=== PATIENT | female | born 1985 | race Two or more races ===

== ENCOUNTER 2021-03-23 14:13 | Outpatient (REF) | payer OTHER, SELFPAY ==
--- NOTE | ~2021-03-23 | XR_ITS ---
EXAMINATION: XR ANKLE, RIGHT CLINICAL INFORMATION: Injury COMPARISON: None TECHNIQUE: AP, lateral, and mortise views of the right ankle. FINDINGS: Bone alignment is normal. No acute fracture or dislocation is seen. There is a well-corticated soft tissue ossification inferior to the lateral malleolus suggestive of changes related to old trauma or accessory ossicle. The ankle mortise is normal. Soft tissues are normal. XR/XR ankle RT min 3V IMPRESSION: No acute fracture or dislocation seen.
== END 2021-03-23 14:14 | disposition home or self-care (01) ==
LOC: HO.HMGCX 14:13
PROVIDERS: PCP Internal Medicine; Visit Provider Nurse Practitioner Family
DX: S99.911A Unspecified injury of right ankle, initial encounter (principal)
CPT/HCPCS: 73610

== ENCOUNTER 2023-12-26 22:54 | Emergency (ER) | payer OTHER, SELFPAY ==
--- NOTE | ~2023-12-26 | CT_ITS ---
EXAMINATION: CT HEAD WITHOUT CONTRAST CLINICAL INFORMATION: Repeat scan to evaluate hyperdense lesion/bleed COMPARISON: 12/26/2023 TECHNIQUE: Contiguous axial imaging was performed from the skull base to vertex without intravenous administration of contrast. This CT examination was performed using dose optimization techniques as appropriate, variously including the following: *Automated exposure control *Adjustment of mA and/or kV according to patient size (this includes techniques or standardized protocols for targeted exams where dose is matched to indication/reason for exam; i.e. extremities or head) *Use of iterative reconstruction technique DLP: 568 mGy-cm FINDINGS: There is a redemonstrated tiny hyperattenuating focus along the left aspect of the anterior falx on image 29/49 which is unchanged from prior and may reflect calcification versus trace hemorrhage. Small region of cortical calcification again noted in the inferior left frontal lobe which may reflect sequelae of old infection or prior infarction. There is no evidence of acute territorial infarction. No abnormal mass-effect or midline shift is seen. Zavala to white matter differentiation is well preserved. The ventricles are normal in size. No acute fracture is seen. Redemonstrated small subgaleal hematoma anteriorly towards the vertex. The mastoid air cells are well-aerated. Slight opacification of the visualized maxillary sinuses. Partial opacification of the bilateral ethmoid air cells. CT/CT head/brain wo IV con IMPRESSION: Tiny hyperattenuating focus along the left aspect of the anterior falx is unchanged from prior and may reflect calcification versus trace hemorrhage. No new acute findings identified.
--- NOTE | ~2023-12-26 | CT_ITS ---
EXAMINATION: NONCONTRAST HEAD CT NONCONTRAST CERVICAL SPINE CT INDICATION INFORMATION: Fall, head strike COMPARISON: None TECHNIQUE: Separate noncontrast CT examinations of the head and cervical spine were performed. Coronal head CT images and coronal and sagittal cervical spine images were created at the technologist workstation. DLP: 806 mGy-cm DOSE LOWERING TECHNIQUES: This CT examination was performed using dose optimization techniques as appropriate, variously including the following: - Automated exposure control - Adjustment of mA and/or kV according to patient size (this includes techniques or standardized protocols for targeted exams were dose is matched to indication/reason for exam; i.e. extremities or head) - Use of iterative reconstruction technique FINDINGS: Head: There is a 3 mm hyperdensity adjacent to the left aspect of the anterior falx on image 44/72 which could reflect a tiny focus of calcification, though trace hemorrhage could also have a similar appearance. Small amount of cortical calcification is present in the inferior left lower lobe. There is no evidence of acute territorial infarction. No abnormal mass-effect or midline shift is seen. Zavala to white matter differentiation is well preserved. The ventricles are normal in size. There is no abnormal attenuation within the brain parenchyma. No acute fracture is seen. Small subgaleal hematoma is suspected anteriorly towards the vertex. Left maxillary sinus because retention cyst. Trace fluid in the right maxillary sinus. Partially opacified bilateral ethmoid air cells. The mastoid air cells are well-aerated. Cervical spine: There is degenerative change at the atlantodens articulation. There is reversal of the normal cervical lordosis which could be due to positioning or muscle spasm. There is minimal grade 1 anterolisthesis of C3 on C4 and C4 on C5, age-indeterminate. Vertebral body heights are maintained. Intervertebral disc spaces are preserved. No evidence of acute fracture. No prevertebral soft tissue swelling. Visualized portions of the lung apices demonstrate scarring. The thyroid gland is unremarkable. CT/CT cervical spine wo IV con IMPRESSION: HEAD: 1. Tiny hyperdensity adjacent to the left aspect of the anterior falx could reflect a tiny focus of calcification, though trace acute hemorrhage could also have this appearance. This could be reassessed with short-term follow-up CT. 2. Small subgaleal hematoma anteriorly towards the vertex. CERVICAL SPINE: 1. No acute fracture identified. 2. Minimal grade 1 anterolisthesis of C3 on C4 and C4 on C5, age-indeterminate. If there is concern for ligamentous injury, this may be further assessed with MRI. This critical result was discussed with Vignesh Svaage MD on 12/27/2023 1:14 AM, and it was ascertained that the content and urgency of the report was understood at the time of direct communication.
[2023-12-26 23:19] VITALS: BP 119/80; PULSE 93; RESP 16; TEMP 36.7; O2SAT 98; BMI 23.2
--- NOTE | 2023-12-27 01:22 | ED_ITS ---
HPI - Fall General Chief Complaint: Fall Stated Complaint: fell down stairs hit her head Time Seen by Provider: 12/27/23 01:22 Source: patient and family (, Teddy) Mode of arrival: ambulatory Limitations: no limitations History of Present Illness HPI Narrative: 38-year-old female with no significant past medical history, not on blood thinners who presents emergency department for evaluation of head pain and neck pain after falling down approximately 10-12 stairs. The patient states that she was at home and at the top of the steps when she lost her balance and fell. She states she landed on her right shoulder and struck the top of her head on the stairs. She denied loss of consciousness. She states that at the bottom of the stairs she was able to sit up and eventually stand. She is complaining of pain at the top of her head she is 5/10. She denied numbness, weakness, nausea, vomiting. The injury occurred at around 22:30 hours. 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 She denies tobacco use. She occasionally drinks alcohol. She denies drug use. Medical History (Updated 12/27/23 @ 02:58 by Car Ribeiro MD) Physical exam Surgical History (Updated 07/21/20 @ 06:21 by Clara Alvarado) History of appendectomy Family History Family History (Updated 07/21/20 @ 06:22 by Clara Alvarado) Father No problems noted. Mother Hypertension Paternal Grandmother Diabetes Maternal Uncle CVD (cardiovascular disease) Social History Social History Advance Directives: No Advance Directives Information Provided: No Physical Exam Vital Signs: Vital Signs: Last Vital Signs Temp 98.0 F 12/27/23 01:47 Pulse 103 H 12/27/23 01:47 Resp 18 12/27/23 02:23 BP 123/77 12/27/23 01:47 Pulse Ox 98 12/27/23 01:47 O2 Del Method Room Air 12/27/23 01:47 BMI result Body Mass Index 23.2 Vital signs were normal Exam: General: Awake, alert in no distress Head: Has a hematoma over the anterior parietal midline area, this area is tender to palpation, there is a slight abrasion noted in this area with no laceration. EENT: PERRL, Lids normal, sclera normal, conjunctiva normal, nose normal , ears normal, throat without erythema or exudates Neck: Patient has no C-spine tenderness but does have tenderness with palpation of her paraspinal muscles left greater than right with no spasm Lung: breath sounds symmetric, no wheezing, rales or rhonchi Chest: symmetric movement, nontender Heart: regular rate and rhythm, normal S1, S2 no murmurs or rubs Abdomen: soft, non-tender, nondistended, normal bowel sounds Back: no vertebral tenderness, no CVAT Extremities: Patient has mild tenderness palpation of her right deltoid area but has full range of motion of both shoulders, no clavicle tenderness Neuro: Awake, alert, oriented, normal speech, cranial nerves intact, moves all extremities symmetrically Psych: Pleasant, cooperative Medications Administered Discontinued Medications Generic Name Dose Route Start Last Admin Trade Name Freq PRN Reason Stop Dose Admin Morphine Sulfate 4 mg 12/27/23 02:16 12/27/23 02:23 Morphine Sulfate 4 Mg/Ml Cartridge IVPUSH 12/27/23 02:17 4 mg ONCE STA Administration Protocol Ondansetron HCl 4 mg 12/27/23 02:16 12/27/23 02:23 Ondansetron Hcl 4 Mg/2 Ml Vial IVPUSH 12/27/23 02:17 4 mg ONCE ONE Administration Medical Decision Making Medical Decision Making MDM Narrative: 38-year-old female with no significant past medical history who lost her balance at the top of her stairs at home. The fall occurred around 22:30 hours. The patient states that she fell down approximately 10-12 steps. She believes that she initially landed on her right shoulder and then struck the top of her head. Patient had no loss of consciousness. She is currently complaining of top of her head which is 5/10. She has had no nausea, vomiting, numbness or weakness since her fall. Patient's vital signs were normal. Patient does have a hematoma on the anterior parietal in the midline region with a small abrasion o elia the hematoma. This area is tender to palpation. Her neurologic exam was nonfocal. Patient had no significant. Differential diagnosis: ?Includes but is not limited to skull fracture, cerebral bleed, scalp contusion, musculoskeletal contusions Following evaluation was ordered: CT scan of the head and cervical spine without IV contrast Patient was initially treated with the following: Morphine 4 mg IV, Zofran [address] scan of the cervical spine was unremarkable. CT of the brain without IV contrast revealed a tiny hyperdensity adjacent to the left aspect of the anterior falx which could represent a trace acute hemorrhage verses calcified foci. I did discuss the CT head finding with the trauma surgeon at [facility], Dr. Avila. She stated that this was a Brain Injury Guideline 1 injury(BIG 1). She states that the guideline recommends 6 hours of observation in the emergency depart with or without repeat CT scan of the brain at the end of the observation. If the patient's condition does not change and/or if there has no change in the CT scan findings then the patient can be safely discharged home. 02:09 Start physician observation The patient was placed in physician observation and will be closely monitored for change in neurologic status. The patient will have a repeat CT scan 6 hours after the 1st CT scan at 05:30 hours. If there has no change in her CT brain and her neurologic status remains nonfocal, she will be discharged home. At the end of my shift, the patient's care was turned over to my colleague, Dr. Tj Quintanilla. Admission/Observation Consideration of admission/observation: Escalation of care including admission/observation considered Consult Healthcare Provider Management of the patient was discussed with: Animal Physiologist ([facility] trauma surgeon, Dr. Avila) Prescription Management I considered prescription management with: Pain Medication Discharge Plan Discharge Clinical Impression: Fall down stairs, Acute cerebral hemorrhage, Closed head injury, Acute neck sprain, Multiple contusions Patient Disposition: Still a Patient Instructions: Head Injury (ED) Additional Instructions: You may have had a very small bleed in your brain from striking your head when you fell down the stairs. Repeat CT scan did not reveal any significant change which is very reassuring. Do not take any medications that can increased bleeding over the next 48 hours. This includes aspirin, Motrin, Advil, Aleve, naproxen, ibuprofen or other nonsteroidal anti-inflammatory medications. Take Tylenol (acetaminophen) 2 pills every 6 hours as needed for pain. For pain not relieved by Tylenol take morphine 15 mg pills, 1 pill every 4 hours as needed for pain. This medication will make you sleepy, do not drive or work while taking this medication. Morphine is a narcotic medication and can be addicting. If you are concerned about addiction you can ask the pharmacist for less pills or do not get this prescription filled. Apply ice to your head for 15 minutes 4 to 6 times a day to help reduce the hematoma/swelling on the top of your head. You can also apply ice to other areas that hurt from the fall. Follow-up with your doctor in 2 days. Please return to the emergency department if your symptoms get worse or if you develop any symptoms that are concerning to you. Prescriptions: New morphine 15 mg tablet 15 mg PO Q6H PRN (Reason: pain) Qty: 14 0RF Rx Instructions: Patient may request partial fill; Partial Fill upon patient request. Print Language: Japanese
[2023-12-27 01:47] VITALS: BP 123/77; PULSE 103; RESP 17; TEMP 36.7; O2SAT 98
--- NOTE | 2023-12-27 01:53 | PC.NURSE ---
Patient is alert and oriented x5, VSS, no focal deficits. Patient c/o headache and pain in right shoulder s/p fall from top of the stairs (10 stairs down) with + head strike, no LOC, does not take blood thinners. Patient changed into a hospital attire, 20 G IV line placed in L AC, patient medicated per NOV. Patient's spouse at bedside, call rivas in patient's reach.
[2023-12-27 02:23] VITALS: RESP 18
[2023-12-27] MEDS: ondansetron HCL 4 MG/2 ML VIAL IVPUSH (02:23)
[2023-12-27] MEDS: Morphine Sulfate 4 MG/ML CARTRIDGE IVPUSH (02:23)
[2023-12-27 04:00] VITALS: BP 105/58; PULSE 69; RESP 10; TEMP 36.8; O2SAT 99
--- NOTE | 2023-12-27 05:44 | PC.NURSE ---
Patient taken to CT scan.
[2023-12-27 06:11] VITALS: BP 118/63; PULSE 75; RESP 17; TEMP 36.9; O2SAT 100
[2023-12-27] MEDS: Acetaminophen 325 MG TABLET 650 MG PO (06:32)
[2023-12-27 07:20] VITALS: BP 116/65; PULSE 79; RESP 16; TEMP 36.7; O2SAT 99
[2023-12-27 07:21] VITALS: BP 116/65; PULSE 79; RESP 16; TEMP 36.7; O2SAT 99
== END 2023-12-27 07:22 | disposition home or self-care (01) ==
PROVIDERS: Emergency Provider Internal Medicine; PCP Internal Medicine
DX: S06.2XAA Diffuse traumatic brain injury with loss of consciousness status unknown, initial encounter (principal); S13.9XXA Sprain of joints and ligaments of unspecified parts of neck, initial encounter; S20.20XA Contusion of thorax, unspecified, initial encounter; M54.2 Cervicalgia; R51.9 Headache, unspecified; W10.9XXA Fall (on) (from) unspecified stairs and steps, initial encounter; Y93.9 Activity, unspecified; Y92.9 Unspecified place or not applicable; Y99.8 Other external cause status
CPT/HCPCS: 70450; 72125; 96374; 96375; 99284; 99285; J2270; J2405

== ENCOUNTER 2024-02-04 11:21 | Emergency (ER) | payer OTHER, SELFPAY ==
--- NOTE | ~2024-02-04 | CT_ITS ---
EXAMINATION: CT HEAD WITHOUT CONTRAST CLINICAL INFORMATION: Worsening headache COMPARISON: CT head from 12/27/2023 TECHNIQUE: Contiguous axial imaging was performed from the skull base to vertex without intravenous administration of contrast. This CT examination was performed using dose optimization techniques as appropriate, variously including the following: *Automated exposure control *Adjustment of mA and/or kV according to patient size (this includes techniques or standardized protocols for targeted exams where dose is matched to indication/reason for exam; i.e. extremities or head) *Use of iterative reconstruction technique DLP: 559 mGy-cm FINDINGS: Redemonstrated calcification along the inferior aspect of the left frontal lobe potentially representing sequela of remote infection. Previously identified hyperdensity along the anterior falx is less conspicuous on current examination. There is no evidence of acute intracranial hemorrhage or territorial infarction. No abnormal mass effect or midline shift is seen. Zavala to white matter differentiation is well preserved. No extra-axial fluid collections are identified. The ventricles are normal in size. There is no abnormal attenuation within the brain parenchyma. The osseous structures and soft tissues are normal. Mucoperiosteal thickening of the left maxillary sinus. The mastoid air cells and visualized portions of the paranasal sinuses are well aerated. CT/CT head/brain wo IV con IMPRESSION: 1. No acute intracranial pathology. 2. Redemonstrated calcification along the inferior aspect of the left frontal lobe potentially representing sequela of remote infection. 3. Previously identified hyperdensity along the anterior falx is less conspicuous on current examination suggesting resolution.
[2024-02-04 12:18] VITALS: BP 137/93; PULSE 98; RESP 18; TEMP 36.6; O2SAT 99; BMI 23.0
--- NOTE | 2024-02-04 12:23 | ED_ITS ---
HPI - General Adult General Chief complaint: Headache Stated complaint: Lightheaded, shaky, fatigue Time Seen by Provider: 02/04/24 19:22 Source: patient Mode of arrival: ambulatory Limitations: no limitations History of Present Illness ED Provider: Sabino Alvarez PA-C HPI narrative: 38 yold female healthy presents to the ED for headaches intermittently since december after falling down the stairs. Patient was informed she seems to be having concussion like symptoms. Patient also states since with headache that noise and light will make it worse. Patient denies any posterior neck stiffness, fever, chills, or rash. Patient denies any chest pain or shortness of breath. Patient states at times will have bilateral shoulder and back pain with headache. Patient denies any weakness or paralysis of extremities. Patient denies slurred speech, facial droop, loss of vision, weakness, paralysis of extremites. Patient had MRI last week Related Data Previous Rx's ?Medication ?Instructions ?Recorded morphine 15 mg immediate release 15 mg PO Q6H PRN pain #14 tabs 12/27/23 tablet [id number]-mtkmetgfmblev-[id number] 1 cap PO Q6H PRN pain 2 days #8 02/04/24 50 mg-300 mg-40 mg capsule caps (Fioricet) naproxen 500 mg tablet 500 mg PO BID PRN pain 7 days #14 02/04/24 tabs Allergies Allergy/AdvReac Type Severity Reaction Status Date / Time No Known Allergies Allergy Verified 02/04/24 12:21 [No Known Allergies*] Review of Systems 2 Review of Systems: headache for one month Yes all other systems are reviewed and are negative FOR[facility]LY [facility] Past Medical History Medical History (Updated 02/04/24 @ 23:44 by PITER Julio) Physical exam Surgical History (Updated 07/21/20 @ 06:21 by Clara Alvarado) History of appendectomy Family History Family History (Updated 07/21/20 @ 06:22 by Clara Alvarado) Father No problems noted. Mother Hypertension Paternal Grandmother Diabetes Maternal Uncle CVD (cardiovascular disease) Social History Social History Alcohol intake: current Alcohol intake frequency: holidays/special occasions only Smoked in Last 30 Days: No Use of substances other than those prescribed or required for medical reasons: No Advance Directives: No Advance Directives Information Provided: No Do you have a plan to hurt others: No Plan Patient : No Physical Exam ED Vital Signs: Vital Signs - 24 hr 02/04/24 22:09 02/05/24 00:01 02/05/24 00:17 Temperature 97.5 F 97.5 F Pulse Rate 73 85 85 Respiratory Rate 16 18 18 Blood Pressure 92/55 L 120/76 120/76 Pulse Oximetry 99 99 99 Oxygen Delivery Method Room Air Room Air Room Air BMI result Body Mass Index 23.0 Const General: cooperative, healthy appearing, comfortable, no acute distress, well developed, alert, awake and Physically active Orientation/consciousness: oriented to person, oriented to place, oriented to time and patient oriented x3 HENMT Head: Yes normal to inspection, Yes No palpable skull fracture present, Yes normocephalic, Yes atraumatic and No abrasion Ears: hearing grossly normal bilaterally, external ears normal, TM's normal bilaterally, TM normal on the right, TM normal on the left, EAC's normal, mastoids normal and no periauricular adenopathy Face and sinus: Yes normal facial exam, Yes sinuses nontender and Yes face symmetric Throat: Yes posterior oropharynx normal, Yes tonsils normal and Yes uvula midline Eyes General: appearance normal, both eyes and all related structures Visual Mckeon: normal visual mckeon by confrontation Alignment and Position: alignment normal Periorbital: periorbital findings normal Eyelids: Yes eyelids normal Conjunctivae: conjunctivae normal Sclerae: sclerae normal Corneas: corneas normal Pupils: Equal, round and reactive pupils present Neck Neck: Yes normal visual inspection, Yes full ROM, Yes no lymphadenopathy, Yes no meningeal signs, Yes trachea midline, Yes supple, No anterior neck swelling and No tender Chest Chest palpation & inspection: normal inspection of the chest and normal palpation of entire chest wall Resp Effort & Inspection: normal respiratory effort and able to speak in complete sentences Auscultation: clear to auscultation bilaterally Cardio Jugular venous distension: no JVD Heart sounds: S1 normal heart sound present and S2 normal heart sound present GI Inspection: Yes normal to inspection Palpation (GI): Soft to palpation, not firm, nontender, no guarding and not rigid General: No CVA tenderness and Yes no CVA tenderness Back/Spine/Pelvis Back: no CVA tenderness, No CVA tenderness and No back tenderness Skin General skin exam: no rashes or lesions noted, elasticity normal and turgor normal Neuro General: oriented to person, oriented to place, oriented to time, patient oriented x3, gait normal, tone normal, moves all extremities, Normal light touch and pain sensation, no meningeal signs, no focal motor deficits, CN's II-XI intact bilaterally and normal sensation to monofilament Cranial nerves: Yes Equal, round and reactive pupils present Extrem General: Yes normal to inspection, Yes full ROM and Yes capillary refill normal Psych Appearance: grossly normal, well kempt and not disheveled Course Course Course Narrative: [age] old female presents for evaluation of headache. She was seen here on 12/26/2023 after falling down 10-12 steps. At the time she had a small intracranial hemorrhage. She was kept overnight repeat CT 6 hours later showed no interval change and she was discharged home. Denies any recent trauma. She reports having an MRI last week but does not know the results. On exam she is well-appearing. Plan for repeat CT brain given the worsening headaches Medications Administered Discontinued Medications Generic Name Dose Route Start Last Admin Trade Name Freq PRN Reason Stop Dose Admin Diphenhydramine HCl 50 mg 02/04/24 19:54 02/04/24 20:16 Diphenhydramine Hcl 50 Mg/Ml Vial IVPUSH 02/04/24 19:55 50 mg ONCE ONE Administration Ketorolac Tromethamine 30 mg 02/04/24 19:54 02/04/24 20:16 Ketorolac Tromethamine 30 Mg/Ml Vial IVPUSH 02/04/24 19:55 30 mg ONCE ONE Administration Metoclopramide HCl 10 mg 02/04/24 19:54 02/04/24 20:16 Metoclopramide Hcl 10 Mg/2 Ml Vial IVPUSH 02/04/24 19:55 10 mg ONCE ONE Administration Medical Decision Making Medical Decision Making [facility] Narrative: 38-year-old female presents to ED for intermittent chronic headaches since trauma in December with slight photophobia and phonophobia. Patient denies any neck stiffness, fever, chills, or rash. Presently negative for signs of meningitis. Not suspecting stroke. Not suspecting encephalitis. Not suspecting carotid dissection or vertebral dissection. Not suspecting cerebral cavernous thrombosis. 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 Labs migraine medication ordered. 11:29pm: Patient's headache resolved with meds. CT scan of head shows no new changes. Radiologist writing left frontal lobe remote infection is inaccurate. CT scan of head results and [facility] MRI results was discussed with Dr. Quintanilla who agrees the MRI results are more accurate and patient is not having an infectious process. Negative for any neuro deficits patient explained worrisome signs and informed to follow up with primary care provider. Not suspect meningitis, brain bleed, encephalitis, ACP, carotid dissection, brain aneurysm, skull fracture, or cancer Differential Diagnosis Differential Diagnoses: The differential diagnosis associated with the presentation includes (Migraine, headache,) Lab Data MDM Lab Attestation statement: I reviewed the patient's lab results. 02/04/24 20:10 02/04/24 20:10 Labs: Lab Results 02/04/24 02/04/24 Range/Units 20:10 21:52 WBC 7.2 (4.8-10.8) X10*3/uL RBC 4.32 (4.20-5.50) X10*6/uL Hgb 13.3 (12.0-16.0) g/dl Hct 38.6 (37.0-47.0) % MCV 89.4 (80.0-98.0) fL MCH 30.8 (27.0-33.0) pg MCHC 34.5 (31.0-35.0) g/dl RDW 11.6 (11.0-16.0) % Plt Count 253 (160-400) X10*3/uL MPV 8.7 L (9.4-12.3) fL Immature Gran % (Auto) 0.3 (0.0-0.4) % Neut % (Auto) 56.1 (45-73) % Lymph % (Auto) 33.1 (20-40) % Haines % (Auto) 6.5 (2-11) % Eos % (Auto) 3.6 (0-4) % Baso % (Auto) 0.4 (0-2) % Lymph # (Auto) 2.4 (1.2-4.9) X10*3/uL Haines # (Auto) 0.5 (0.1-1.2) X10*3/uL Eos # (Auto) 0.3 (0.0-0.4) X10*3/uL Baso # (Auto) 0.0 (0.0-0.2) X10*3/uL Abs Immat Gran (auto) 0.02 (0.00-0.03) X10*3/uL Absolute Neuts (auto) 4.0 (2.0-8.3) x10*3/uL Absolute Nucleated RBC 0.000 (0.0-0.012) X10*3/uL Nucleated RBC % (auto) 0.0 (0.0-0.2) /100WBC Sodium 140 (135-145) mmol/L Potassium 3.4 (3.3-5.1) mmol/L Chloride 108 (96-108) mmol/L Carbon Dioxide 23 (22-29) mmol/L Anion Gap 12 (12-20) BUN 13 (9-16) mg/dL Creatinine 0.77 (0.5-1.4) mg/dL Estim Creat Clear Calc 94.4 Estimated GFR > 60 Random Glucose 84 (60-115) mg/dL Calcium 9.0 (8.4-10.2) mg/dL Total Bilirubin 0.5 (0.0-1.0) mg/dL AST 28 (5-31) U/L ALT 39 H (0-31) U/L Alkaline Phosphatase 61 (39-117) U/L Troponin I High Sens < 2.7 (<3.5-17.0) ng/L Total Protein 7.1 (6.5-8.0) g/dL Albumin 4.1 (3.5-5.0) g/dL Beta HCG, Quant < 2 mIU/mL Urine Color Yellow Urine Appearance Clear Urine pH 7.0 (5.0-9.0) Ur Specific [place] 1.020 (1.005-1.025) Urine Protein Negative (Neg-Trace) mg/dL Urine Glucose (UA) Negative (Negative) mg/dL Urine Ketones Negative (Negative) mg/dL Urine Blood Negative (Negative) Urine Nitrite Negative (Negative) Ur Leukocyte Esterase Trace H (Negative) Urine RBC 3-5 H (0-2) /HPF Urine WBC 0-5 (0-5) /HPF Ur Squamous Epith Cells 0-2 (0-2) /HPF Urine Bacteria Trace (None Seen) Hyaline Casts 0-2 (0-2) /LPF Independent Interpretation I performed an independent interpretation of an: EKG (Normal SInus rhythm) and CT Scan Interpretation: [facility] MRI Radiology Impression Discussion of test interpretation with radiology: I have reviewed the radiologist's reading. External Record Review External record reviewed: Other (Prior visit) Prescription Management I considered prescription management with: Pain Medication Discharge Plan Discharge Clinical Impression: Migraine, Headache Patient Disposition: Home, Self-Care Instructions: Migraine Headache (ED), General Headache (ED) Additional Instructions: Recommend follow-up with primary care provider. Return to the ED immediately for worsening headache, neck stiffness, fever, chills, nausea, vomiting, photophobia, paralysis of extremities, facial droop, slurred speech, loss of vision, any other concerning symptoms. EKG labs came back normal. Head CT scan showed no new changes. Prescriptions: New naproxen 500 mg tablet 500 mg PO BID PRN (Reason: pain) 7 Days Qty: 14 0RF [id number] [Fioricet] 50-300-40 mg capsule 1 cap PO Q6H PRN (Reason: pain) 2 Days Qty: 8 0RF No Action morphine 15 mg tablet 15 mg PO Q6H PRN (Reason: pain) Qty: 14 0RF Rx Instructions: Patient may request partial fill; Partial Fill upon patient request. Stand Alone Forms: Work/School Release Interventions: ED Discharge Assessment Last Done: 02/05/24 00:17 Discharge Date/Time: 02/05/24 00:31 Print Language: Albanian
[2024-02-04 18:04] VITALS: BP 113/73; PULSE 91; RESP 8; TEMP 36.6; O2SAT 99
--- NOTE | 2024-02-04 20:01 | ECG_ITS ---
Test Reason : DYSPNEA Blood Pressure : / mmHG Vent. Rate : 078 BPM Atrial Rate : 078 BPM P-R Int : 128 ms QRS Dur : 082 ms QT Int : 408 ms P-R-T Axes : 052 038 052 degrees QTc Int : 465 ms Normal sinus rhythm Normal ECG No previous ECGs available Referred By: Sabino Alvarez Electronically Signed By:Romulo Drake
[2024-02-04 20:05] VITALS: BP 113/68; PULSE 80; RESP 12; O2SAT 97
[2024-02-04 20:14] LABS: MANUAL DIFF FLAG NO
[2024-02-04 20:15] LABS: Basophils Percent Auto 0.4 % (0-2); Eosinophils Absolute Auto 0.3 X10*3/uL (0.0-0.4); Eosinophils Percent Auto 3.6 % (0-4); Hematocrit 38.6 % (37.0-47.0); Hemoglobin 13.3 g/dl (12.0-16.0); Imm Gran Abs Auto 0.02 X10*3/uL (0.00-0.03); Imm Gran Pct Auto 0.3 % (0.0-0.4); Lymphocytes Absolute Auto 2.4 X10*3/uL (1.2-4.9); Lymphocytes Percent Auto 33.1 % (20-40); Mean Corpuscular HGB Conc 34.5 g/dl (31.0-35.0); Mean Corpuscular Hemoglobin 30.8 pg (27.0-33.0); Mean Corpuscular Volume 89.4 fL (80.0-98.0); Mean Platelet Volume 8.7 fL (9.4-12.3); Monocytes Absolute Auto 0.5 X10*3/uL (0.1-1.2); Monocytes Percent Auto 6.5 % (2-11); Neutrophils Percent Auto 56.1 % (45-73); Platelet Count 253 X10*3/uL (160-400); Red Blood Count 4.32 X10*6/uL (4.20-5.50); Red Cell Distribution Width 11.6 % (11.0-16.0); White Blood Count 7.2 X10*3/uL (4.8-10.8)
[2024-02-04] MEDS: Metoclopramide HCl 10 MG/2 ML VIAL IVPUSH (20:16)
[2024-02-04] MEDS: Ketorolac Tromethamine 30 MG/ML VIAL IVPUSH (20:16)
[2024-02-04] MEDS: diphenhydrAMINE HCL 50 MG/ML VIAL IVPUSH (20:16)
[2024-02-04 20:35] LABS: Alanine Aminotransferase 39 U/L (0-31); Albumin Level 4.1 g/dL (3.5-5.0); Alkaline Phosphatase 61 U/L (39-117); Anion Gap 12 (12-20); Aspartate Amino Transferase 28 U/L (5-31); Bilirubin Total 0.5 mg/dL (0.0-1.0); Blood Urea Nitrogen 13 mg/dL (9-16); Carbon Dioxide 23 mmol/L (22-29); Chloride 108 mmol/L (96-108); Creatinine Clr Calc Pharmacy 94.4; Estimated Glomerular Filt Rate > 60; Glucose Random 84 mg/dL (60-115); Potassium 3.4 mmol/L (3.3-5.1); Sodium 140 mmol/L (135-145); Total Protein 7.1 g/dL (6.5-8.0)
[2024-02-04 20:38] LABS: HCG Quantitative < 2 mIU/mL; Troponin-I High Sensitivity < 2.7 ng/L (<3.5-17.0)
[2024-02-04 21:58] LABS: Appearance Urine Clear; Color Urine Yellow; Glucose Urine UA Negative (Negative); Leukocyte Esterase Urine Trace (Negative); Nitrite Urine Negative (Negative); UMIC TRIGGER UACC YES; Urine Blood Negative (Negative); Urine Ketones Negative (Negative); Urine Protein Negative (Neg-Trace)
[2024-02-04 22:09] VITALS: BP 92/55; PULSE 73; RESP 16; O2SAT 99
[2024-02-04 22:44] LABS: Bacteria Urine Trace (None Seen); Hyaline Casts Urine 0-2 /LPF (0-2); Squamous Epithelial Cell Urine 0-2 /HPF (0-2); WBC Urine 0-5 /HPF (0-5)
[2024-02-05 00:01] VITALS: BP 120/76; PULSE 85; RESP 18; TEMP 36.4; O2SAT 99
--- NOTE | 2024-02-05 00:04 | MHC.EDTECH ---
This tech took over care of patient at 2300,hourly rounds and vitals completed,call rivas in reach
[2024-02-05 00:17] VITALS: BP 120/76; PULSE 85; RESP 18; TEMP 36.4; O2SAT 99
== END 2024-02-05 00:31 | disposition home or self-care (01) ==
PROVIDERS: Physician Assistant; Emergency Provider Internal Medicine
DX: G43.909 Migraine, unspecified, not intractable, without status migrainosus (principal)
CPT/HCPCS: 36415; 70450; 80053; 81001; 81003; 84484; 84702; 85025; 93005; 96374; 96375; 99284; 99285; J1200; J1885; J2765

== ENCOUNTER → 2024-02-04 20:01 | Outpatient (BNV) | payer OTHER, SELFPAY | PROVIDERS: Emergency Provider Internal Medicine; Visit Provider Internal Medicine Cardiovascular Disease | DX: R06.00 Dyspnea, unspecified (principal) | CPT/HCPCS: 93010 ==